=== PATIENT | female | born 1990 | race Caucasian/White ===

== ENCOUNTER 2019-04-22 12:57 | Day surgery (SDC) | payer OTHER ==
[~2019-04-22] VITALS: Ht 167.6 cm; Wt 62.3 kg
[~2019-04-22 12:57] MED LIST: No meds per pt.
[2019-04-22 13:23] VITALS: BP 118/75
[2019-04-22 13:32] LABS: HCG UR SG 1.022 (1.003-1.030)
[2019-04-22] MEDS ORDERED: ONDANSETRON ODT 8 MG PO ONE (14:00)
[2019-04-22] MEDS ORDERED: LACTATED RINGERS 1,000 ML IV SCH (14:00)
[2019-04-22] MEDS ORDERED: SCOPOLAMINE PATCH, 1.5MG PATCH.TD72 TD ONE (14:00)
[2019-04-22] MEDS ORDERED: GABAPENTIN 300 MG CAPSULE PO ONE (14:00)
[2019-04-22] MEDS ORDERED: ACETAMINOPHEN 500 MG TABLET PO ONE (14:00)
[2019-04-22] MEDS ORDERED: MIDAZOLAM 1 MG/ML, 2ML ONE (15:33)
[2019-04-22] MEDS ORDERED: FENTANYL PF 100 MCG/2ML ONE (15:33)
[2019-04-22] MEDS ORDERED: BUPIVACAINE/PF 0.5% ONE (15:34)
[2019-04-22] MEDS ORDERED: EPINEPHRINE 1 MG/ML, 1ML INFIL ONE (16:05)
[2019-04-22] MEDS ORDERED: ALBUTEROL SULFATE 2.5 MG/3 ML NPPB PRN (16:30)
[2019-04-22] MEDS ORDERED: ACETAMINOPHEN 325 MG TABLET PO PRN (16:30)
[2019-04-22] MEDS ORDERED: MEPERIDINE/PF 25MG/0.5ML IVPush PRN (16:30)
[2019-04-22] MEDS ORDERED: DIAZEPAM 5 MG/ML, 2ML IVPush PRN (16:30)
[2019-04-22] MEDS ORDERED: PROMETHAZINE 25 MG/ML, 1ML IV PRN (16:30)
[2019-04-22] MEDS ORDERED: KETOROLAC 30 MG/1 ML IV PRN (16:30)
[2019-04-22] MEDS ORDERED: LABETALOL 5MG/ML, 20ML IV PRN (16:30)
[2019-04-22] MEDS ORDERED: HYDROmorphone 2 MG/ML, 1ML IVPush PRN (16:30)
[2019-04-22] MEDS ORDERED: hydrALAzine 20 MG/ML, 1ML IV PRN (16:30)
[2019-04-22] MEDS ORDERED: OXYcodone 5 MG/5 ML ORAL.SOL UDC PO PRN (16:30)
[2019-04-22] MEDS ORDERED: FENTANYL PF 100 MCG/2ML IV PRN (16:30)
[2019-04-22] MEDS ORDERED: CEFAZOLIN 1,000 MG ONE (16:43)
[2019-04-22] MEDS ORDERED: DEXAMETHASONE 4 MG/ML, 1ML ONE (16:43)
[2019-04-22] MEDS ORDERED: PROPOFOL 10 MG/ML, 20ML ONE (16:43)
[2019-04-22] MEDS ORDERED: MEPERIDINE/PF 25MG/ML,1ML ONE (17:11)
== END 2019-04-22 18:40 | disposition home or self-care (01) ==
LOC: OUT 12:57
PROVIDERS: ATTEND Surgery
DX: N63.20 Unspecified lump in the left breast, unspecified quadrant (principal); D24.2 Benign neoplasm of left breast; N60.82 Other benign mammary dysplasias of left breast; Z83.3 Family history of diabetes mellitus; Z82.49 Family history of ischemic heart disease and other diseases of the circulatory system
CPT/HCPCS: 19120; 36415; 81025; 86803; 87340; 87806; 88305; J0171; J0690; J1100; J2175; J2250; J2704; J3010; J7120; Q0162; G0475

== ENCOUNTER → 2020-11-08 | Outpatient (CLI) | payer OTHER ==
[~2020-11-08] VITALS: Ht 170.2 cm; Wt 80.4 kg
[~2020-11-08] MED LIST changes: +FENTANYL PF 100 MCG/2ML ONE; +LIDOCAINE 1%, 20ML ONE; +MISOPROSTOL 200 MCG TABLET ONE; +NEWBORN KIT ONE; +OXYTOCIN 30U/ 0.9% NaCL 500ML 500 ML ONE; +PREN1TAB10 PO
[2020-11-08 16:00] VITALS: BP 126/64
== END | disposition home or self-care (01) ==
LOC: LDOP 15:29
PROVIDERS: ATTEND Obstetrics & Gynecology
DX: O46.93 Antepartum hemorrhage, unspecified, third trimester (principal); Z3A.40 40 weeks gestation of pregnancy
CPT/HCPCS: 59025

== ENCOUNTER 2020-11-10 07:41 | Inpatient (IN) | payer OTHER ==
[~2020-11-10] VITALS: Ht 170.2 cm; Wt 80.5 kg
[~2020-11-10 07:41] MED LIST changes: -FENTANYL PF 100 MCG/2ML ONE; -LIDOCAINE 1%, 20ML ONE; -MISOPROSTOL 200 MCG TABLET ONE; -NEWBORN KIT ONE; -OXYTOCIN 30U/ 0.9% NaCL 500ML 500 ML ONE
[2020-11-10] MEDS ORDERED: FENTANYL PF 100 MCG/2ML IV PRN (10:00)
[2020-11-10] MEDS ORDERED: ONDANSETRON 2MG/ML, 2ML IVPush PRN (10:00)
[2020-11-10] MEDS ORDERED: TERBUTALINE 1 MG/ML, 1ML SQ PRN (10:00)
[2020-11-10] MEDS ORDERED: TERBUTALINE 1 MG/ML, 1ML IVPush PRN (10:00)
[2020-11-10] MEDS ORDERED: CALCIUM CARBONATE 500 MG TAB.CHEW PO PRN (10:00)
[2020-11-10] MEDS: LACTATED RINGERS 1,000 ML IV SCH ×2 (10:19→14:48)
[2020-11-10] MEDS: FENTANYL PF 100 MCG/2ML IVPush PRN ×3 (10:20→19:12)
[2020-11-10 10:23] LABS: BASOPHILS % (AUTO) 0 % (0-1); EOSINOPHILS % (AUTO) 0 % (1-7); LYMPHOCYTES % (AUTO) 7 % (22-44); MEAN CORPUSCULAR HEMOGLOBIN 30.3 pg (27.0-34.8); MEAN CORPUSCULAR HGB CONC 33.6 g/dL (32.4-35.8); MEAN PLATELET VOLUME 9.3 fL (7.4-10.4); MONOCYTES % (AUTO) 3 % (2-9); NEUTROPHILS % (AUTO) 89 % (42-75); PLATELET COUNT 181 x10^3/uL (130-400); RED BLOOD COUNT 4.46 x10^6/uL (3.82-5.3); RED CELL DISTRIBUTION WIDTH 15.5 % (9.6-15.2)
[2020-11-10] MEDS ORDERED: OXYTOCIN 30U/ 0.9% NaCL 500ML 500 ML IV ONE (11:00)
[2020-11-10] MEDS ORDERED: D5%-LACTATED RINGERS 1,000 ML IV SCH (11:00)
[2020-11-10 19:15] VITALS: BP 109/58
[2020-11-10] MEDS ORDERED: OXYTOCIN 30U/ 0.9% NaCL 500ML 500 ML IV PRN (23:00)
[2020-11-11] MEDS: FENTANYL PF 100 MCG/2ML IVPush PRN (00:52)
[2020-11-11] MEDS: LACTATED RINGERS 1,000 ML IV SCH ×2 (03:39→12:02)
[2020-11-11] MEDS ORDERED: LACTATED RINGERS 1,000 ML IV SCH ×2 (05:00→05:30)
[2020-11-11] MEDS ORDERED: FENTANYL/BUPIV./NS/PF 250 ML EPIDCONT SCH ×2 (05:00→05:30)
[2020-11-11] MEDS ORDERED: EPHEDRINE 50 MG/ML, 1ML IVPush PRN ×2 (05:00→05:30)
[2020-11-11] MEDS ORDERED: LACTATED RINGERS 1,000 ML IVBOLUS PRN ×2 (05:00→05:30)
[2020-11-11] MEDS ORDERED: NALOXONE 0.4 MG/ML, 1ML IVPush PRN (05:30)
[2020-11-11] MEDS ORDERED: LACTATED RINGERS 1,000 ML INTUTE PRN (12:30)
[2020-11-11] MEDS ORDERED: LACTATED RINGERS 1,000 ML INTUTE SCH (12:30)
[2020-11-11] MEDS: OXYTOCIN 30U/ 0.9% NaCL 500ML 500 ML IV SCH (14:30)
[2020-11-11] MEDS ORDERED: ONDANSETRON 2MG/ML, 2ML IV PRN (14:30)
[2020-11-11] MEDS ORDERED: OXYcodone/APAP 5/325MG TABLET PO PRN (14:30)
[2020-11-11] MEDS ORDERED: MISOPROSTOL 200 MCG TABLET PR PRN (14:30)
[2020-11-11] MEDS ORDERED: SIMETHICONE 80 MG CHEW TAB PO PRN (14:30)
[2020-11-11] MEDS: IBUPROFEN 600 MG TABLET PO PRN (17:53)
[2020-11-11] MEDS: OXYcodone/APAP 5/325MG TABLET PO PRN ×2 (17:53→22:55)
[2020-11-11 18:26] VITALS: BP 111/68
[2020-11-11 21:43] LABS: MEAN CORPUSCULAR HEMOGLOBIN 30.5 pg (27.0-34.8); MEAN CORPUSCULAR HGB CONC 33.5 g/dL (32.4-35.8); MEAN PLATELET VOLUME 9.4 fL (7.4-10.4); PLATELET COUNT 177 x10^3/uL (130-400); RED BLOOD COUNT 3.55 x10^6/uL (3.82-5.3); RED CELL DISTRIBUTION WIDTH 15.4 % (9.6-15.2)
[2020-11-11 22:05] LABS: BAND#(MANUAL) 1.32 x10^3/uL; BANDS%(MANUAL) 5 % (0-7); LYMPH#(MANUAL) 1.06 x10^3/uL (1-3.4); LYMPHS% (MANUAL) 4 % (22-44); MONOS#(MANUAL) 1.58 x10^3/uL (0.3-2.7); MONOS% (MANUAL) 6 % (2-9); SEG#(MANUAL) 22.44 x10^3/uL (1.8-6.8); SEGS% (MANUAL) 85 % (42-75)
[2020-11-11 22:06] LABS: <RBC MORPHOLOGY> NORMAL
[2020-11-11 22:07] LABS: <PLATELET ESTIMATE> ADEQUATE; <PLT MORPHOLOGY> NORMAL PLT MORPH; OVALOCYTES 1+; PMNS WITH VACUOLES 1+; TOXIC GRAN 1+
[2020-11-11 22:50] VITALS: BP 107/66
[2020-11-11] MEDS ORDERED: PRENATAL VIT/IRON/FA 1 EACH TABLET ONE (22:51)
[2020-11-11] MEDS: PRENATAL VIT/IRON/FA 1 EACH TABLET PO SCH (22:54)
[2020-11-11] MEDS: DOCUSATE 100 MG CAPSULE PO PRN (22:54)
[2020-11-12] MEDS: OXYTOCIN 30U/ 0.9% NaCL 500ML 500 ML IV SCH ×3 (00:30→20:30)
[2020-11-12 02:00] VITALS: BP 102/66
[2020-11-12] MEDS: IBUPROFEN 600 MG TABLET PO PRN ×3 (03:32→18:10)
[2020-11-12] MEDS: OXYcodone/APAP 5/325MG TABLET PO PRN ×4 (03:32→21:47)
[2020-11-12 07:24] VITALS: BP 108/66
[2020-11-12] MEDS: DOCUSATE 100 MG CAPSULE PO PRN (07:31)
[2020-11-12] MEDS: PRENATAL VIT/IRON/FA 1 EACH TABLET PO SCH (07:31)
[2020-11-12 12:15] VITALS: BP 113/71
[2020-11-12] MEDS ORDERED: IBUP-1222 PO (15:48)
[2020-11-12] MEDS ORDERED: DOCU-131 PO (15:50)
[2020-11-12] MEDS ORDERED: OXYC1TAB14 PO (15:50)
[2020-11-12 21:00] VITALS: BP 104/69
[2020-11-13] MEDS: OXYTOCIN 30U/ 0.9% NaCL 500ML 500 ML IV SCH (06:30)
[2020-11-13] MEDS: DOCUSATE 100 MG CAPSULE PO PRN (07:31)
[2020-11-13] MEDS: PRENATAL VIT/IRON/FA 1 EACH TABLET PO SCH (07:31)
[2020-11-13] MEDS: IBUPROFEN 600 MG TABLET PO PRN ×2 (07:31→13:48)
[2020-11-13] MEDS: OXYcodone/APAP 5/325MG TABLET PO PRN ×2 (07:32→13:48)
[2020-11-13 07:38] VITALS: BP 115/78
[2020-11-13] MEDS ORDERED: IBUP-1222 PO (13:39)
== END 2020-11-13 17:20 | disposition home or self-care (01) | DRG 807 ==
LOC: LDOP 07:41 → LDIP 10:01 → 2NW 11-11 16:55
PROVIDERS: ADMIT Obstetrics & Gynecology; ATTEND Obstetrics & Gynecology
PROC: 10E0XZZ Delivery of Products of Conception, External Approach (ICD-10-PCS; principal; 2020-11-11)
PROC: 0KQM0ZZ Repair Perineum Muscle, Open Approach (ICD-10-PCS; 2020-11-11)
PROC: 0UQMXZZ Repair Vulva, External Approach (ICD-10-PCS; 2020-11-11)
PROC: 3E0R3BZ Introduction of Anesthetic Agent into Spinal Canal, Percutaneous Approach (ICD-10-PCS; 2020-11-11)
PROC: 00HU33Z Insertion of Infusion Device into Spinal Canal, Percutaneous Approach (ICD-10-PCS; 2020-11-11)
DX: O48.0 Post-term pregnancy (principal); Z37.0 Single live birth; O77.0 Labor and delivery complicated by meconium in amniotic fluid; O70.1 Second degree perineal laceration during delivery; Z3A.40 40 weeks gestation of pregnancy; O42.02 Full-term premature rupture of membranes, onset of labor within 24 hours of rupture
CPT/HCPCS: 36415; J7121; 85025; 86592; 86850; 86900; G0378; J3010; J2590; J7120